=== PATIENT | male | born 1965 | race Caucasian/White ===

== ENCOUNTER → 2017-08-01 | Outpatient (CLI) | payer BC ==
[~2017-08-01] MED LIST: FLOMAX0.4 MG PO; FOSINOPRIL SODI10 MG PO; LIPITOR10 MG PO; OMEGA 3-6-9 CO1 EACH PO; POTASSIUM CITR10 MEQ PO; PRILOSEC40 MG PO
== END | disposition home or self-care (01) ==
LOC: CDC 10:22
DX: Z01.810 Encounter for preprocedural cardiovascular examination (principal); J38.1 Polyp of vocal cord and larynx
CPT/HCPCS: 93000